=== PATIENT | female | born 1980 | race Hispanic/Latino ===

== ENCOUNTER 2018-06-03 12:37 | Emergency (ER) | payer MEDICAID, OTHER ==
[2018-06-03 12:37] VITALS: BMI 28.7
[2018-06-03 12:52] VITALS: BP 115/74; PULSE 76; RESP 16; TEMP 98.1; O2SAT 100
--- NOTE | 2018-06-03 16:06 | C.PDOC ---
History Of Present Illness 37 y/o female presents to the ER complaining of fever and sore throat which has been present for the past 3 days. Patient denies having CP, SOB, nausea, vomiting, sick contacts and recent travel. Chief Complaint (Nursing): Flu-like Symptoms History Per: Patient History/Exam Limitations: no limitations Onset/Duration Of Symptoms: Days Current Symptoms Are (Timing): Still Present Severity: Moderate Past Medical History Reviewed: Historical Data, Nursing Documentation, Vital Signs Vital Signs: Last Vital Signs Temp 98.1 F 06/03/18 12:47 Pulse 76 06/03/18 12:47 Resp 16 06/03/18 12:47 BP 115/74 06/03/18 12:47 Pulse Ox 100 06/03/18 12:47 - Medical History PMH: No Chronic Diseases Surgical History: No Surg Hx Family History: States: No Known Family Hx - Social History Hx Tobacco Use: No Hx Alcohol Use: No Hx Substance Use: No - Immunization History Hx Tetanus Toxoid Vaccination: No Hx Influenza Vaccination: No Hx Pneumococcal Vaccination: No Review Of Systems Except As Marked, All Systems Reviewed And Found Negative. Constitutional: Positive for: Fever. Negative for: Chills ENT: Positive for: Throat Pain Respiratory: Negative for: Cough Gastrointestinal: Negative for: Nausea, Vomiting Physical Exam - Physical Exam Appears: Non-toxic, No Acute Distress Skin: Normal Color, Warm, Dry Head: Atraumatic, Normacephalic Eye(s): bilateral: Normal Inspection Ear(s): Bilateral: Normal Nose: Normal Oral Mucosa: Moist Throat: Erythema (erythematous tonsils), No Exudate Neck: Supple Lymphatic: Adenopathy (tender anterior cervical lymphadenopathy) Chest: Symmetrical Cardiovascular: Rhythm Regular Respiratory: Normal Breath Sounds, No Rales, No Rhonchi, No Wheezing Neurological/Psych: Oriented x3, Normal Speech ED Course And Treatment O2 Sat by Pulse Oximetry: 100 (RA) Pulse Ox Interpretation: Normal Medical Decision Making Medical Decision Making: Plan: --POC Test Disposition - Disposition Referrals: [facility], [Non-Staff] - Disposition: HOME/ ROUTINE Disposition Time: 14:00 Condition: GOOD Additional Instructions: GARRET MENDES, thank you for letting us take care of you today. The emergency medical care you received today was directed at your acute symptoms. If you were prescribed any medication, please fill it and take as directed. It may take several days for your symptoms to resolve. Return to the Emergency Department if your symptoms worsen, do not improve, or if you have any other problems. Please contact your doctor or call one of the physicians/clinics you have been referred to that are listed on the Patient Visit Information form that is included in your discharge packet. Bring any paperwork you were given at discharge with you along with any medications you are taking to your follow up visit. Our treatment cannot replace ongoing medical care by a primary care provider outside of the emergency department. Thank you for allowing the [facility] team to be part of your care today. Follow up with you [facility] doctor next week for re-evaluation and further management. Prescriptions: Amoxicillin 875 mg PO BID #14 tablet Vit No.126/Iron/Folic [Classic Tablet] 1 each PO DAILY #30 tablet Instructions: Sore Throat, Adult (DC), - The First Month Forms: Super Vitamin D ([place]) - Clinical Impression Clinical Impression: Pharyngitis, Early stage of - Scribe Statement The provider has reviewed the documentation as recorded by the Lester Silva Provider Attestation: All medical record entries made by the Darrickibe were at my direction and personally dictated by me. I have reviewed the chart and agree that the record accurately reflects my personal performance of the history, physical exam, medical decision making, and the department course for this patient. I have also personally directed, reviewed, and agree with the discharge instructions and disposition.
== END 2018-06-03 14:16 | disposition home or self-care (01) ==
LOC: C.ER 12:37
DX: O26.891 Other specified pregnancy related conditions, first trimester (principal); J02.9 Acute pharyngitis, unspecified; Z3A.00 Weeks of gestation of pregnancy not specified